=== PATIENT | female | born 1975 | race African-American/Black ===

== ENCOUNTER 2018-03-12 05:11 | Inpatient (IN) | payer OTHER ==
[~2018-03-12] VITALS: Ht 170.2 cm; Wt 80.8 kg
[2018-03-12] MEDS ORDERED: FENTANYL PF 100MCG/2ML AMPUL ONE ×2 (09:43→10:54)
[2018-03-12] MEDS ORDERED: SUCCINYLCHOLINE CHLORIDE 20 MG/ML VIAL ONE (09:44)
[2018-03-12] MEDS ORDERED: MIDAZOLAM HCL 2 MG/2ML VIAL ONE (09:44)
[2018-03-12] MEDS ORDERED: BACITRACIN 50000 UNITS/VIAL ONE ×2 (10:05)
[2018-03-12] MEDS ORDERED: BUPIVACAINE 0.25% 75 MG/30 ML VIAL ONE (10:36)
[2018-03-12 12:00] VITALS: BP 110/60
[2018-03-12] MEDS ORDERED: IV LR 1000 ML 1,000 ML IV PRN (12:30)
--- NOTE | 2018-03-12 12:30 | NUR ---
PT ORIENTED TO ROOM AND CALL LIGHT. NO SOB OR DISTRESS NOTED AT THIS TIME. PATIENT REPORTS PAIN. WILL FOLLOW UP WITH PAIN MEDICATIONS WHEN ABLE. VITALS CHECKED AND RECORDED. BED IN A LOW POSITION, CALL LIGHT WITHIN PT REACH. WILL MONITOR.
[2018-03-12] MEDS: oxyCODONE/APAP (5/325 MG) 1 UDTAB TABLET PO PRN ×2 (12:48→18:47)
--- NOTE | 2018-03-12 13:03 | NUR ---
CALLED [facility] FOR DR GREGORY TO INFORM HIM OF PT ADMISSION. WAITING FOR RETURN CALL.
--- NOTE | 2018-03-12 14:05 | NUR ---
PER DR CRESPO'S ORDERS. MAY DC IV FLUIDS WHEN PT IS TOLERATING DIET. PT TOLERATED LUNCH WELL. STATES HUNGRY. WILL DC FLUIDS PER ORDER.
[2018-03-12] MEDS: FENTANYL PF 100MCG/2ML AMPUL IV PRN ×2 (14:36→20:50)
--- NOTE | 2018-03-12 14:53 | NUR ---
DR GREGORY ON FLOOR. MADE AWARE OF NEW ADMIT. MED RECON NURSE IS PLACING PATIENT HOME MEDS.
[2018-03-12] MEDS ORDERED: MULT-1017 PO (14:58)
[2018-03-12] MEDS ORDERED: ZOLP10TA2 PO (14:58)
[2018-03-12] MEDS ORDERED: CALC-534 PO (14:58)
[2018-03-12] MEDS ORDERED: IBUP-1955 PO (14:58)
[2018-03-12] MEDS: ONDANSETRON HCL/PF 4 MG/2 ML VIAL IVP PRN (17:17)
--- NOTE | 2018-03-12 19:09 | NUR ---
NO SIGNIFICANT CHANGES IN PATIENT CONDITION THROUGHOUT THE SHIFT. NO SOB OR DISTRESS NOTED AT THIS TIME. PATIENT REPORTS PAIN, MEDICATED FOR PAIN. BED IN A LOW POSITION, CALL LIGHT WITHIN PATIENT REACH. WILL ENDORSE FOR ELISABET.
--- NOTE | 2018-03-12 19:30 | NUR ---
RN NOTES RECEIVED PATIENT IN BED AWAKE, AO X 3, ABLE TO MAKE NEEDS KNOWN. NO ACUTE DISTRESS NOTED. MONITORED FOR PAIN. RIGHT KNEE DRESSING INTACT; IMMOBILIZER ON RIGHT LEG; ICE MACHINE TREATMENT ONGOING ON RIGHT KNEE. IV SITE PATENT, INTACT; FLUSHED. SAFETY REMINDERS GIVEN. ON LOW BED WITH BILATERAL UPPER SIDE RAILS UP. CALL ARNOLD WITHIN EASY REACH. WILL CONTINUE TO MONITOR.
[2018-03-12 20:00] VITALS: BP 103/63
[2018-03-12] MEDS ORDERED: ZOLPIDEM TARTRATE 10 MG TABLET PO PRN (22:00)
[2018-03-13] MEDS: FENTANYL PF 100MCG/2ML AMPUL IV PRN ×2 (03:08→09:16)
[2018-03-13] MEDS: ONDANSETRON HCL/PF 4 MG/2 ML VIAL IVP PRN ×2 (05:28→15:36)
--- NOTE | 2018-03-13 06:00 | NUR ---
RN NOTES PATIENT ASLEEP, EASILY AROUSABLE. RESPIRATIONS EVEN. NO SIGNS OF PAIN NOTED. NEEDS ATTENDED. KEPT CLEAN AND DRY. SAFETY PRECAUTIONS AND COMFORT MEASURES IN PLACE. WILL GIVE REPORT TO DAY SHIFT FOR CONTINUITY OF CARE.
[2018-03-13] MEDS: oxyCODONE/APAP (5/325 MG) 1 UDTAB TABLET PO PRN ×3 (06:35→18:36)
--- NOTE | 2018-03-13 06:54 | NUR ---
RN NOTES RECEIVED PATIENT IN BED AWAKE, AO X 3, ABLE TO MAKE NEEDS KNOWN. NO ACUTE DISTRESS NOTED. MONITORED FOR PAIN. RIGHT KNEE DRESSING INTACT; IMMOBILIZER ON RIGHT LEG; ICE MACHINE TREATMENT ONGOING ON RIGHT KNEE. IV SITE PATENT, INTACT; FLUSHED. SAFETY REMINDERS GIVEN. ON LOW BED WITH BILATERAL UPPER SIDE RAILS UP. CALL ARNOLD WITHIN EASY REACH. WILL CONTINUE TO MONITOR. Addendum: 03/13/18 at 0731 by LISSY LOUIE RN CORRECT TIME 03/12/181929
--- NOTE | 2018-03-13 07:53 | NUR ---
MS RN OPENING NOTES RECEIVED PT FROM NIGHTSHIFT NURSE IN STABLE CONDITION. PT IS A/O X4. NO SOB NOTED. BREATHING IS EVEN AND UNLABORED. PT IS ON RA AND SATING WELL. SHE DOES COMPLAIN OF A BURNING PAIN TO HER RIGHT KNEE CAP PAIN RATED AN 8/10. WILL ADMINISTER PRN MEDICATION WHEN DUE PT WAS PREVIOUSLY GIVEN PERCOCET BY NIGHTSHIFT NURSE. KNEE IMMOBILIZER NOTED. SURGICAL DRESSING NOTE TO BE CLEAN, DRY, AND INTACT. IV TO LEFT FA NOTED TO BE PATENT AND INTACT. NO REDNESS OR SIGNS OF INFILTRATION NOTED. BED IN LOW LOCKED POSITION, SIDE RAILS UP X2, CALL LIGHT WITHIN REACH. WILL CONTINUE TO MONITOR
[2018-03-13 08:00] VITALS: BP 93/52
[2018-03-13] MEDS: MULTIVIT, IRON, MIN NO. 8, FA 1 TAB PO SCH (09:09)
[2018-03-13 09:48] LABS: BASOPHILS % (AUTO) 0.1 % (0.0-2.0); CALCIUM, SERUM 8.6 mg/dL (8.5-10.1); CREATININE 0.9 mg/dL (0.6-1.3); EOSINOPHILS % (AUTO) 0.7 % (0.0-6.0); HEMATOCRIT 37 % (33-45); HEMOGLOBIN 12.3 g/dL (11.5-14.8); LYMPHOCYTES # (AUTO) 1.8 /CMM (0.8-4.8); LYMPHOCYTES % (AUTO) 25.1 % (20.0-44.0); MAGNESIUM 1.6 mg/dL (1.8-2.4); MEAN CORPUSCULAR HGB CONC 34 g/dl (31.0-36.0); MEAN CORPUSCULAR VOLUME 86 fL (82-100); MONOCYTES # (AUTO) 0.4 /CMM (0.1-1.30); MONOCYTES % (AUTO) 6.3 % (2.0-12.0); NEUTROPHILS # (AUTO) 4.8 /CMM (1.8-8.9); NEUTROPHILS % (AUTO) 67.8 % (43.0-81.0); PHOSPHORUS 3.6 mg/dL (2.5-4.9); PLATELET COUNT (AUTO) 209 /CMM (150-450); RDW COEFFICIENT OF VARIATION 11.7 (11.5-15.0); RED BLOOD CELL COUNT(AUTO) 4.26 MIL/uL (4.0-5.2)
--- NOTE | 2018-03-13 11:43 | NUR ---
MS RN NOTES DR GREGORY INFORMED OF PT'S UNRELIEVED PAIN ALONG WITH LOW MAGNESIUM OF 1.6. PER MD "CONTACT DR NGUYEN IN REGARDS TO PAIN MANAGEMENT, CHANGE IN PERCOCET FROM PRN TO SCHEDULED AND ORDER 2G OF MAGNESIUM". WILL CARRY OUT ORDERS
[2018-03-13] MEDS ORDERED: oxyCODONE/APAP (5/325 MG) 1 UDTAB TABLET PO SCH (12:00)
[2018-03-13] MEDS ORDERED: Magnesium 1GM/D5W 100ML PREMIX PIGGYBACK IV ONE (12:00)
[2018-03-13] MEDS: Magnesium 1GM/D5W 100ML PREMIX 100 ML IV SCH ×2 (12:34→13:45)
--- NOTE | 2018-03-13 13:28 | NUR ---
DR. NGUYEN CONTACTED DR. NGUYEN WAS CALLED FOR A CONSULTATION PT'S PAIN IS UNRELIEVED WITH THE OXY AND FENTANYL MEDICATION ADMINISTRATION. A VOICEMAIL WAS LEFT. AWAITING CALL BACK
--- NOTE | 2018-03-13 14:04 | NUR ---
DR. NGUYEN FOLLOW UP DR. NGUYEN CALLED BACK. CURRENT PAIN MANAGEMENT REVIEWED. PT DR. NGUYEN, "D/C THE CURRENT SCHEDULED PERCOCET AND ORDER PERCOCET 5-325 Q3 HRS". HE STATES THAT HE WILL SEE THAT PT TOMORROW IF SHE IS NOT DISCHARGE LATER TODAY. WILL CONTACT HIM LATER IN REGARDS TO EFFECTIVENESS OF NEW ORDER Addendum: 03/13/18 at 1410 by AUSTEN CHAVEZ RN * PERCOCET 5-325 Q3HRS PRN
[2018-03-13 16:00] VITALS: BP 103/63
[2018-03-13] MEDS ORDERED: diphenhydrAMINE HCL 25 MG CAPSULE PO PRN (19:30)
[2018-03-13] MEDS ORDERED: LORAZEPAM 1 MG TABLET PO PRN (19:30)
--- NOTE | 2018-03-13 19:57 | NUR ---
MS RN CLOSING NOTES PT REMAINS STABLE ALL NEEDS WERE MET DURING SHIFT AND ORDERS CARRIED OUT ACCORDINGLY. ALL DUE MEDS GIVEN. DR NGUYEN CONTACTED AGAIN IN REGARD TO PAIN REGIME. MD NOTIFIED THAT CURRENT PAIN MANAGEMENT IS STILL NOT EFFECTIVE. PER MD "I WILL TALK TO PHARMACY AND ADD OXYCODONE AND SEE THE PT TOMORROW BY NOON". EXTREMITY OFFLOADED THROUGHOUT SHIFT. IMMOBILIZER REMAINS IN PLACE. VITALS STABLE. WILL ENDORSE TO NIGHTSHIFT NURSE FOR ELISABET
[2018-03-13 20:00] VITALS: BP 98/50
[2018-03-13] MEDS: oxyCODONE IR immediate release 5 MG PO PRN (22:21)
[2018-03-14] MEDS: oxyCODONE IR immediate release 5 MG PO PRN ×4 (04:36→15:52)
[2018-03-14 08:39] VITALS: BP 100/51
[2018-03-14] MEDS: MULTIVIT, IRON, MIN NO. 8, FA 1 TAB PO SCH (09:22)
--- NOTE | 2018-03-14 11:35 | NUR ---
RN NOTES PATIENT SEEN BY DR. GREGORY, RECEIVED ORDER FOR DISCHARGE. PER MD, HE WANTS HOME HEALTH TO BE ARRANGED THIS WEEK, THEN PATIENT CAN CONTINUE TO AN OUTPATIENT REHAB.
--- NOTE | 2018-03-14 12:20 | NUR ---
RN NOTES PATIENT A/OX3, RECEIVED DISCHARGE INSTRUCTIONS AND VERBALIZED UNDERSTANDING, PATIENT SIGNED DISCHARGE PAPERWORKS, PIV REMOVED, SKIN ASSESSMENT CLEAR OTHER THAN THE RIGHT KNEE INCISION. PATIENT CONTINUES TO BE ON PHYSICAL THERAPY. ALL NEEDS ATTENDED AND MET, PATIENT UNABLE TO TOLERATE SITTING IN THE WHEELCHAIR, TELEPHONE DIRECTORY DISTRIBUTOR DRIVER AND INFORMATICS MANAGER MADE AWARE. PER TELEPHONE DIRECTORY DISTRIBUTOR DRIVER, SHE WILL WAIT FOR INSURANCE TO COVER HER AMBULANCE TRANSPORTATION. WILL F/U.
[2018-03-14 16:14] VITALS: BP 102/54
--- NOTE | 2018-03-14 16:53 | NUR ---
PROJECT MANAGER PROCESS DEVELOPMENT PATIENT'S TRANSPORTATION CAME AND TRANSFERRED PATIENT TO [facility]. PATIENT RECEIVED OXYCODONE FOR PAIN, AND DENIES PAIN AT THIS TIME, PATIENT'S IS IN NO DISTRESS, NO CHANGE IN LOC, VERBALIZED UNDERSTANDING OF THE DISCHARGE INSTRUCTIONS. PATIENT WAS ALSO SEEN BY EUGENIA CHENG THIS AFTERNOON AND PROVIDED INFORMATION ON HOW TO CARE FOR SURGICAL INCISION AND TO MAKE A FOLLOW UP APPOINTMENT. PATIENT LEFT THE FACILITY IN NO DISTRESS. ALL BELONGINGS RECONCILED, TOOK SOME BELONGINGS HOME AND THE REST, PATIENT BROUGHT WITH HER IN THE AMBULANCE.
== END 2018-03-14 16:53 | disposition home or self-care (01) | DRG 494 ==
LOC: DS 05:11 → MEDSG2 11:50
PROVIDERS: ADMIT Specialist; ATTEND Internal Medicine
PROC: 0Q8G0ZZ Division of Right Tibia, Open Approach (ICD-10-PCS; principal; 2018-03-12 10:05)
PROC: 0MNN0ZZ Release Right Knee Bursa and Ligament, Open Approach (ICD-10-PCS; principal; 2018-03-12 10:05)
DX: M17.11 Unilateral primary osteoarthritis, right knee (principal); G47.00 Insomnia, unspecified; G89.29 Other chronic pain
CPT/HCPCS: 36415; 80048-TC; 83735-TC; 84100-TC; 84703-TC; 85025-TC; 86850-TC; 86921-TC; 87081-TC; 97116-TC; 97530-TC; A4217; A6253; J0330; J0690; J1885; J2250; J2405; J2704; J3010; J3475; J3490; J7050; J7120; L1830